=== PATIENT | female | born 1980 | race Caucasian/White ===

== ENCOUNTER 2018-02-28 18:37 | Observation (INO) | payer OTHER ==
[~2018-02-28] VITALS: Ht 160 cm; Wt 74.8 kg
[~2018-02-28 18:37] MED LIST: CETI-32 PO
[2018-02-28] MEDS ORDERED: ACET-2619 PO (19:42)
[2018-02-28] MEDS ORDERED: PREN-546 PO (19:42)
[2018-02-28] MEDS ORDERED: FERR-252 PO (19:42)
[2018-02-28 20:34] VITALS: BP 122/70
== END 2018-02-28 20:20 | disposition home or self-care (01) ==
LOC: MLD 18:37
PROVIDERS: ADMIT Obstetrics & Gynecology; ATTEND Obstetrics & Gynecology
DX: O99.519 Diseases of the respiratory system complicating pregnancy, unspecified trimester (principal); J00 Acute nasopharyngitis [common cold]; Z3A.00 Weeks of gestation of pregnancy not specified
CPT/HCPCS: 81000; G0378

== ENCOUNTER 2019-03-27 12:31 | Emergency (ER) | payer OTHER ==
[~2019-03-27] VITALS: Ht 160 cm; Wt 68.0 kg
[~2019-03-27 12:31] MED LIST changes: +ACET-2619 PO; -CETI-32 PO; +FERR-252 PO; +PREN-546 PO
--- NOTE | 2019-03-27 12:42 | NUR ---
TO ED 07 WITH STEADY GAIT.
[2019-03-27 12:43] VITALS: BP 141/83
--- NOTE | 2019-03-27 12:55 | NUR ---
Dr. Goodwin is evaluating the patient at bedside.
[2019-03-27] MEDS ORDERED: LIDOCAINE MPF 1% 10 MG/ML VIAL INJ ONE (13:00)
--- NOTE | 2019-03-27 13:00 | NUR ---
PATIENT PRESENTS TO ED WITH C/O BUMP ON HER R LOWER BACK X 2 WEEKS. PT STATES THAT IT HAS BEEN THERE FOR A WHILE BUT ONSET OF PAIN STARTED 2 WEEKS AGO. HER DRAINED IT THIS MORNING, WHICH PROVIDED MILD RELIEF. +SWELLING, +REDNESS, -FEVER, -NVD. PATIENT STATES PAIN OF 0/10 AT THIS TIME; VSS; PATIENT POSITIONED FOR COMFORT; HOB ELEVATED; BEDRAILS UP X2; BED DOWN. ER MD SAW PATIENT. PMH: NONE MEDS: NONE ALLERGIES: NAPROXEN
--- NOTE | 2019-03-27 13:45 | NUR ---
ER AT BEDSIDE DRAINING CYST
--- NOTE | 2019-03-27 13:47 | NUR ---
Dr. oGodwin is evaluating the patient at bedside.
[2019-03-27 14:00] VITALS: BP 141/83
== END 2019-03-27 14:00 | disposition home or self-care (01) ==
LOC: MED 12:31
DX: L02.212 Cutaneous abscess of back [any part, except buttock and flank] (principal); Z79.899 Other long term (current) drug therapy; Z88.6 Allergy status to analgesic agent; Z98.890 Other specified postprocedural states
CPT/HCPCS: 10060; 99284; J2001; 99283

== ENCOUNTER 2019-05-23 21:40 | Emergency (ER) | payer OTHER ==
[~2019-05-23] VITALS: Ht 160 cm; Wt 70.8 kg
[2019-05-23 22:23] VITALS: BP 133/93
--- NOTE | 2019-05-23 23:54 | NUR ---
PT AMBULATED TO CHAIR A
[2019-05-23] MEDS ORDERED: NACL 0.9% 1,000 ML IV ONE (23:55)
[2019-05-24] MEDS ORDERED: ONDANSETRON 4 MG/2 ML VIAL IVP ONE (00:10)
[2019-05-24] MEDS ORDERED: ONDANSETRON 4 MG/2 ML VIAL ONE (00:11)
[2019-05-24 00:12] LABS: BASOPHILS % (AUTO) 0.4 % (0.0-2.0); EOSINOPHILS # (AUTO) 0.2 K/uL (0-0.4); EOSINOPHILS % (AUTO) 2.2 % (0.0-4.0); HEMATOCRIT 41.1 % (36-48); HEMOGLOBIN 13.9 g/dL (12.0-16.0); LYMPHOCYTES # (AUTO) 0.4 K/uL (2.5-16.5); LYMPHOCYTES % (AUTO) 4.9 % (20.5-51.1); MEAN CORPUSCULAR HEMOGLOBIN 32 pg (27-31); MEAN CORPUSCULAR HGB CONC 34 g/dL (33-37); MEAN CORPUSCULAR VOLUME 95.1 fL (80-94); MONOCYTES # (AUTO) 0.4 K/uL (0.8-1.0); MONOCYTES % (AUTO) 4.1 % (1.7-9.3); NEUTROPHILS # (AUTO) 7.5 K/uL (1.8-7.7); NEUTROPHILS % (AUTO) 88.4 % (42.2-75.2); PLATELET COUNT (AUTO) 220 K/uL (140-450); RED BLOOD CELL COUNT(AUTO) 4.32 MIL/uL (4.20-5.40); RED CELL DISTRIBUTION WIDTH 12.3 % (11.6-13.7); WHITE BLOOD COUNT (AUTO) 8.5 K/uL (4.8-10.8)
--- NOTE | 2019-05-24 00:20 | NUR ---
ASSESSMENT COMPLETED FOR ABD PAIN. PATIENT SITTING UP IN CHAIR. IV STARTED, FLUIDS RUNNING ORDERED. PATIENT TOLERATED WELL.
[2019-05-24 00:40] LABS: ALBUMIN 4.4 g/dL (3.4-5.0); ANION GAP 13.5 (8-16); CARBON DIOXIDE 27.2 mmol/L (21-32); CREATININE 0.8 mg/dL (0.6-1.3); POTASSIUM 3.7 mmol/L (3.5-5.1); TOTAL BILIRUBIN 0.8 mg/dL (0.0-1.0)
[2019-05-24 01:13] VITALS: BP 133/93
--- NOTE | 2019-05-24 01:13 | NUR ---
Patient discharged with v/s stable. Written and verbal after care instructions given and explained. Patient alert, oriented and verbalized understanding of instructions. Ambulatory with steady gait. All questions addressed prior to discharge. ID band removed. Patient advised to follow up with PMD. Rx of ZOFRAN WAS given. Patient educated on indication of medication including possible reaction and side effects. Opportunity to ask questions provided and answered PT NO LONGER HAD PAIN OR N/V PRIOR TO D/C
== END 2019-05-24 01:13 | disposition home or self-care (01) ==
LOC: MED 21:40
DX: A05.9 Bacterial foodborne intoxication, unspecified (principal); R11.2 Nausea with vomiting, unspecified; Z79.899 Other long term (current) drug therapy; Z88.8 Allergy status to other drugs, medicaments and biological substances
CPT/HCPCS: 36415; 80053; 81025; 85025; 96361; 96374; 99283; J2405

== ENCOUNTER 2020-12-08 07:06 | Emergency (ER) | payer OTHER ==
[~2020-12-08] VITALS: Ht 160 cm; Wt 75.7 kg
[2020-12-08 07:13] VITALS: BP 124/108
--- NOTE | 2020-12-08 07:23 | NUR ---
PT AMBULATED TO BED 11 WITH STEADY GAIT
--- NOTE | 2020-12-08 07:24 | NUR ---
DR NAIK AT BEDSIDE EVALUATING PT
--- NOTE | 2020-12-08 07:25 | NUR ---
40 Y/O FEMALE C/O FLU-LIKE SYMPTOMS X 3 DAYS. C/O RUNNY NOSE, PRODUCTIVE COUGH WITH YELLOW PHELGM. ALSO REPORTS LEFT EAR AND THROAT PAIN X 1 DAY. PT RATES PAIN 8/10 THAT SHE DESCRIBES BURNING. PT TOOK MUCINEX WHICH PROVIDED NO RELIEF. PT TESTED FOR COVID ON MONDAY, CAME OUT NEGATIVE. CHILDREN WITH SAME SYMPTOMS. PT A/O X4 WITH EVEN AND UNLABORED RESPIRATIONS. PMH:DENIES ALLERGY: NAPROXEN
[2020-12-08] MEDS ORDERED: LORA1T1237 PO (07:30)
[2020-12-08 07:40] VITALS: BP 124/108
--- NOTE | 2020-12-08 07:40 | NUR ---
Patient discharged with v/s stable. Written and verbal after care instructions ABOUT MEDICATION AND UPPER RESPIRATORY INFECTION AND EARACHE given and explained. Patient alert, oriented and verbalized understanding of instructions. Ambulatory with steady gait. All questions addressed prior to discharge. ID band removed. Patient advised to follow up with PMD. Rx of LORATADINE/PSEUDOEPHEDRINE (CLARITIN D12 HR) given. Patient educated on indication of medication including possible reaction and side effects. Opportunity to ask questions provided and answered.
== END 2020-12-08 07:40 | disposition home or self-care (01) ==
LOC: MED 07:06
DX: J06.9 Acute upper respiratory infection, unspecified (principal); H92.09 Otalgia, unspecified ear; F12.90 Cannabis use, unspecified, uncomplicated; Z98.890 Other specified postprocedural states; Z79.899 Other long term (current) drug therapy; Z88.8 Allergy status to other drugs, medicaments and biological substances
CPT/HCPCS: 99282

== ENCOUNTER 2021-02-25 22:49 | Emergency (ER) | payer OTHER ==
[~2021-02-25] VITALS: Ht 160 cm; Wt 72.6 kg
[~2021-02-25 22:49] MED LIST changes: +LORA1T1237 PO
[2021-02-25 22:59] VITALS: BP 150/72
--- NOTE | 2021-02-25 22:59 | NUR ---
TO BED AMBULATORY
--- NOTE | 2021-02-25 23:00 | NUR ---
PT. IS A 41 Y/O FEMALE THAT CAME INTO ED WITH RT EAR PAIN THAT STARTED THIS MORNING. PT RATES PAIN 9/10 ON THE PAIN SCALE AT THIS TIME. DENIES N/V/D/FEVER. AAOX4;VSS PMH: DENIES ALLERGIES: NAPROXEN
[2021-02-25] MEDS ORDERED: AMOX500C25 PO (23:35)
[2021-02-25] MEDS ORDERED: AMOXICILLIN 500 MG CAP PO ONE (23:35)
== END 2021-02-25 23:43 | disposition home or self-care (01) ==
LOC: MED 22:49
DX: H66.91 Otitis media, unspecified, right ear (principal); Z88.6 Allergy status to analgesic agent
CPT/HCPCS: 99283

== ENCOUNTER 2021-05-17 14:36 | Emergency (ER) | payer OTHER ==
[~2021-05-17] VITALS: Ht 160 cm; Wt 74.8 kg
[~2021-05-17 14:36] MED LIST changes: +AMOX500C25 PO
[2021-05-17 15:06] VITALS: BP 136/86
--- NOTE | 2021-05-17 15:16 | NUR ---
pt swabbed for wayne and novel at this time
[2021-05-17] MEDS ORDERED: AMOX-1000 PO (16:51)
[2021-05-17] MEDS ORDERED: CETI1TAB5 PO (16:51)
[2021-05-17 17:06] VITALS: BP 136/86
--- NOTE | 2021-05-17 17:06 | NUR ---
Patient discharged with v/s stable. Written and verbal after care instructions given and explained. Patient alert, oriented and verbalized understanding of instructions. Ambulatory with steady gait. All questions addressed prior to discharge. ID band removed. Patient advised to follow up with PMD. Rx of amoxicillin/postassium clav, cetirizine hcl (sent) given. Patient educated on indication of medication including possible reaction and side effects. Opportunity to ask questions provided and answered.
== END 2021-05-17 17:06 | disposition home or self-care (01) ==
LOC: MED 14:36
DX: U07.1 COVID-19 (principal); Z79.899 Other long term (current) drug therapy; Z88.8 Allergy status to other drugs, medicaments and biological substances
CPT/HCPCS: 87426; 99283; U0003

== ENCOUNTER 2021-07-15 23:08 | Emergency (ER) | payer OTHER ==
[~2021-07-15] VITALS: Ht 160 cm; Wt 72.1 kg
[~2021-07-15 23:08] MED LIST changes: +AMOX-1000 PO; +CETI1TAB5 PO
[2021-07-15 23:51] VITALS: BP 143/88
--- NOTE | 2021-07-15 23:57 | NUR ---
PT SENT TO [facility], WAITING FOR BED. Addendum: 07/15/21 at 9655 by [facility] GIVEN URINE CUP, STATES SHE IS UNABLE TO GO AT THIS MOMENT.
[2021-07-16 00:13] LABS: BASOPHILS % (AUTO) 0.4 % (0.0-2.0); EOSINOPHILS % (AUTO) 0.5 % (0.0-4.0); HEMATOCRIT 39.3 % (36-48); HEMOGLOBIN 13.8 g/dL (12.0-16.0); LYMPHOCYTES # (AUTO) 0.7 K/uL (2.5-16.5); LYMPHOCYTES % (AUTO) 13.4 % (20.5-51.1); MEAN CORPUSCULAR HEMOGLOBIN 33 pg (27-31); MEAN CORPUSCULAR HGB CONC 35 g/dL (33-37); MEAN CORPUSCULAR VOLUME 93.3 fL (80-94); MONOCYTES # (AUTO) 0.3 K/uL (0.8-1.0); MONOCYTES % (AUTO) 7.1 % (1.7-9.3); NEUTROPHILS # (AUTO) 3.8 K/uL (1.8-7.7); NEUTROPHILS % (AUTO) 78.6 % (42.2-75.2); PLATELET COUNT (AUTO) 216 K/uL (140-450); RED BLOOD CELL COUNT(AUTO) 4.21 MIL/uL (4.20-5.40); RED CELL DISTRIBUTION WIDTH 12.5 % (11.6-13.7); WHITE BLOOD COUNT (AUTO) 4.9 K/uL (4.8-10.8)
--- NOTE | 2021-07-16 00:25 | NUR ---
PT TAKEN TO ER BED 08
[2021-07-16 00:44] LABS: APPEARANCE,URINE SL CLOUDY (CLEAR); BILIRUBIN,URINE NEGATIVE (NEGATIVE); BLOOD, URINE NEGATIVE (NEGATIVE); COLOR,URINE YELLOW (YELLOW); LEUKOCYTE ESTERASE ,URINE NEGATIVE (NEGATIVE); NITRITE, URINE NEGATIVE (NEGATIVE); UGLUCOSE NEGATIVE (NEGATIVE)
[2021-07-16 01:08] LABS: ALBUMIN 4.2 g/dL (3.4-5.0); ANION GAP 13.7 (8-16); CARBON DIOXIDE 24.9 mmol/L (21-32); CREATININE 0.9 mg/dL (0.6-1.3); POTASSIUM 3.6 mmol/L (3.5-5.1); TOTAL BILIRUBIN 0.8 mg/dL (0.0-1.0)
--- NOTE | 2021-07-16 01:34 | NUR ---
Dr. Esteves examining patient.
[2021-07-16] MEDS ORDERED: NACL 0.9% 1,000 ML IV ONE (01:40)
[2021-07-16] MEDS ORDERED: ONDANSETRON 4 MG/2 ML VIAL IVP ONE (01:40)
[2021-07-16] MEDS ORDERED: KETOROLAC 30 MG/ML VIAL IVP ONE (01:40)
--- NOTE | 2021-07-16 01:45 | NUR ---
41 Y/O F BIB SELF AITH C/O VOMITING SINCE Monday. PT HAS H/A , 01/29 PAIN, NAUSEA. PT DENIED F/D/SOB/ COUGH. PT IS A&O X4, AMBULATORY, DENIES DRUG AND ALCHOL ABUSE. PMH: NONE ALLERGIES: NAPROXEN
[2021-07-16] MEDS ORDERED: ONDA-188 SL (01:47)
--- NOTE | 2021-07-16 02:15 | NUR ---
PT RESTING IN BED. X2 SIDE RAILS UP . PT FLUIDS RUNNING
--- NOTE | 2021-07-16 03:00 | NUR ---
Patient appears to be resting comfortably in bed. Vital Signs within normal limits. Respirations even and unlabored. IV FLUIDS RUNNING
[2021-07-16 03:46] VITALS: BP 141/78
== END 2021-07-16 03:46 | disposition home or self-care (01) ==
LOC: MED 23:08
DX: R11.10 Vomiting, unspecified (principal); M79.89 Other specified soft tissue disorders; F12.10 Cannabis abuse, uncomplicated; Z88.8 Allergy status to other drugs, medicaments and biological substances; Z79.899 Other long term (current) drug therapy
CPT/HCPCS: 36415; 80053; 81003; 81025; 82150; 83690; 85025; 96361; 96374; 96375; 99285; J1885; J2405; J7030; 99283; 99284

== ENCOUNTER 2023-06-15 19:16 | Emergency (ER) | payer OTHER ==
[~2023-06-15] VITALS: Ht 160 cm; Wt 65.8 kg
[~2023-06-15 19:16] MED LIST changes: +ONDA-188 SL
[2023-06-15 19:27] VITALS: BP 133/82; PULSE 68; RESP 16; TEMP 97.1; O2SAT 97
[2023-06-15] MEDS ORDERED: NACL 0.9% 1,000 ML IV ONE (19:50)
[2023-06-15] MEDS ORDERED: ONDANSETRON 4 MG/2 ML VIAL IVP ONE (19:50)
[2023-06-15 19:58] VITALS: BP 138/91; PULSE 68; RESP 14; O2SAT 98
[2023-06-15 20:06] LABS: FLU A ANTIGEN negative (NEGATIVE); FLU B ANTIGEN negative (NEGATIVE)
[2023-06-15 20:15] LABS: BASOPHILS # (AUTO) 0.1 K/uL (0.00-0.22); BASOPHILS % (AUTO) 0.6 % (0.0-2.0); EOSINOPHILS # (AUTO) 0.2 K/uL (0-0.4); EOSINOPHILS % (AUTO) 2.5 % (0.0-4.0); HEMATOCRIT 38.7 % (36-48); HEMOGLOBIN 13.8 g/dL (12.0-16.0); LYMPHOCYTES % (AUTO) 12.8 % (20.5-51.1); MEAN CORPUSCULAR HEMOGLOBIN 33 pg (27-31); MEAN CORPUSCULAR HGB CONC 36 g/dL (33-37); MEAN CORPUSCULAR VOLUME 91.9 fL (80-94); MONOCYTES # (AUTO) 0.6 K/uL (0.8-1.0); MONOCYTES % (AUTO) 7.1 % (1.7-9.3); NEUTROPHILS # (AUTO) 6.2 K/uL (1.8-7.7); PLATELET COUNT (AUTO) 295 K/uL (140-450); RED BLOOD CELL COUNT(AUTO) 4.21 MIL/uL (4.20-5.40); RED CELL DISTRIBUTION WIDTH 11.9 % (11.6-13.7); WHITE BLOOD COUNT (AUTO) 8.1 K/uL (4.8-10.8)
[2023-06-15] MEDS ORDERED: LOPERAMIDE 2 MG CAP PO ONE (20:25)
[2023-06-15 20:28] LABS: ALBUMIN 3.9 g/dL (3.4-5.0); ANION GAP 9.7 (8-16); CALCIUM 9.4 mg/dL (8.5-10.1); CARBON DIOXIDE 28.8 mmol/L (21-32); CREATININE 0.9 mg/dL (0.6-1.3); POTASSIUM 3.5 mmol/L (3.5-5.1); TOTAL BILIRUBIN 0.4 mg/dL (0.0-1.0); TOTAL PROTEIN, SERUM 8.9 g/dL (6.4-8.2)
[2023-06-15] MEDS ORDERED: ONDA-188 SL (20:59)
[2023-06-15] MEDS ORDERED: BEN10 PO (20:59)
[2023-06-15] MEDS ORDERED: IMO2 PO (20:59)
== END 2023-06-15 21:18 | disposition home or self-care (01) ==
LOC: MED 19:16
DX: R11.10 Vomiting, unspecified (principal); Z20.822 Contact with and (suspected) exposure to COVID-19; R19.7 Diarrhea, unspecified; Z79.899 Other long term (current) drug therapy; Z88.5 Allergy status to narcotic agent
CPT/HCPCS: 36415; 80053; 81002; 81025; 83690; 85025; 87426; 87804; 96361; 96374; 99283; J2405; J7030

== ENCOUNTER 2023-08-06 10:47 | Emergency (ER) | payer OTHER ==
[~2023-08-06] VITALS: Ht 160 cm; Wt 68.7 kg
[~2023-08-06 10:47] MED LIST changes: +BEN10 PO; +IMO2 PO
[2023-08-06 11:17] VITALS: BP 129/87; PULSE 70; RESP 18; TEMP 97.9; O2SAT 100
[2023-08-06] MEDS: ALUMINUM HYD/MAG/SIMETHICONE 30 ML UDC PO ONE (12:57)
[2023-08-06] MEDS ORDERED: VALA1TAB2 PO (14:06)
[2023-08-06 14:20] VITALS: BP 122/82; PULSE 88; RESP 16; TEMP 98.2; O2SAT 100
== END 2023-08-06 14:20 | disposition home or self-care (01) ==
LOC: MED 10:47
DX: R14.0 Abdominal distension (gaseous) (principal); K30 Functional dyspepsia; B00.89 Other herpesviral infection; Z79.899 Other long term (current) drug therapy; Z88.6 Allergy status to analgesic agent
CPT/HCPCS: 71045; 93005; 99283; Q0092

== ENCOUNTER 2023-10-23 15:17 | Emergency (ER) | payer OTHER ==
[~2023-10-23] VITALS: Ht 160 cm; Wt 66.7 kg
[~2023-10-23 15:17] MED LIST changes: +VALA1TAB2 PO
[2023-10-23 16:20] VITALS: BP 141/100; PULSE 75; RESP 20; TEMP 98; O2SAT 99
[2023-10-23] MEDS ORDERED: ACYC5OIN TP (16:41)
[2023-10-23] MEDS ORDERED: VALA500T52 PO (16:41)
[2023-10-23] MEDS: IBUPROFEN 600 MG TAB PO ONE (16:51)
== END 2023-10-23 17:11 | disposition home or self-care (01) ==
LOC: MED 15:17
DX: B00.89 Other herpesviral infection (principal); Z79.899 Other long term (current) drug therapy
CPT/HCPCS: 99283

== ENCOUNTER 2024-02-02 18:40 | Emergency (ER) | payer OTHER ==
[~2024-02-02] VITALS: Ht 162.6 cm; Wt 73.1 kg
[~2024-02-02 18:40] MED LIST changes: +ACYC5OIN TP; +VALA500T52 PO
[2024-02-02 19:05] VITALS: BP 127/74; PULSE 74; RESP 18; TEMP 97.6; O2SAT 100
[2024-02-02] MEDS ORDERED: SULF-59 PO (20:48)
== END 2024-02-02 20:52 | disposition home or self-care (01) ==
LOC: MED 18:40
DX: N61.0 Mastitis without abscess (principal); Z79.1 Long term (current) use of non-steroidal anti-inflammatories (NSAID); Z79.2 Long term (current) use of antibiotics; Z79.899 Other long term (current) drug therapy; Z88.6 Allergy status to analgesic agent
CPT/HCPCS: 93005; 99284